=== PATIENT | female | born 1945 | race Caucasian/White ===

== ENCOUNTER → 2024-07-20 08:02 | Outpatient (REF) | payer MEDICARE, SELFPAY ==
[2024-07-20 09:36] LABS: % Eosinophils 2.6 % (0-6); % Immature Granulocytes 0.2 % (0-0.5); % Lymphocytes 31.5 % (20.5-51.1); % Monocytes 8.3 % (1.7-9.3); % Neutrophils 56.4 % (42.2-75.2); Absolute Basophils 0.1 10^3/uL (0-0.2); Absolute Eosinophils 0.2 10^3/uL (0-0.7); Absolute Lymphocytes 1.8 10^3/uL (1.2-3.4); Absolute Monocytes 0.5 10^3/uL (0.1-0.6); Absolute Neutrophils 3.3 10^3/uL (1.4-6.5); Hematocrit 39.9 % (37.0-47.0); Hemoglobin 13.3 g/dL (12.0-16.0); Mean Corp Hgb Conc. 33.3 g/dL (33.0-37.0); Mean Corpuscular Hgb 30.6 pg (27.0-31.0); Mean Corpuscular Volume 91.7 fL (81.0-99.0); Mean Platelet Volume 9.4 fL (7.4-10.4); Nucleated Red Blood Cells % 0 %; Platelet Count 278 10^3/uL (130-400); Red Blood Cell Count 4.35 10^6/uL (4.20-5.40); White Blood Cell Count 5.8 10^3/uL (4.8-10.8)
[2024-07-20 10:19] LABS: ALT (SGPT) < 10 U/L (0-35); AST (SGOT) 28 U/L (14-36); Albumin 4.4 g/dl (3.5-5.0); Alkaline Phosphatase 89 U/L (38-126); Blood Urea Nitrogen 22 mg/dl (7-17); Calcium 9.8 mg/dl (8.4-10.2); Carbon Dioxide 29 mmol/L (22-30); Chloride 101 mmol/L (98-107); Glucose 95 mg/dl (70-99); Potassium 4.1 mmol/L (3.5-5.1); Sodium 140 mmol/L (135-145); Total Bilirubin 0.5 mg/dl (0.2-1.3); Total Protein 6.7 g/dl (6.3-8.2); eGFR > 60.00
[2024-07-20 10:42] LABS: TSH 4.18 uIU/ml (0.47-4.68)
== END ==
LOC: HWLAB 08:02
PROVIDERS: ATTENDING PHYSICIAN Family Medicine
DX: E03.8 Other specified hypothyroidism (principal)
CPT/HCPCS: 36415; 80053; 84443; 85025

== ENCOUNTER → 2024-10-17 10:12 | Outpatient (REF) | payer MEDICARE, SELFPAY | LOC: HWWDC 10:12 | PROVIDERS: ATTENDING PHYSICIAN Surgery; FAMILY PHYSICIAN Family Medicine | DX: Z85.3 Personal history of malignant neoplasm of breast (principal); Z12.31 Encounter for screening mammogram for malignant neoplasm of breast | CPT/HCPCS: 77063; 77067 ==

== ENCOUNTER → 2025-03-13 11:00 | Outpatient (REF) | payer MEDICARE, SELFPAY ==
[2025-03-13 16:56] LABS: % Basophils 0.8 % (0-2); % Immature Granulocytes 0.2 % (0-0.5); % Lymphocytes 20.1 % (20.5-51.1); % Monocytes 9.1 % (1.7-9.3); % Neutrophils 69.8 % (42.2-75.2); Absolute Basophils 0.1 10^3/uL (0-0.2); Absolute Lymphocytes 1.3 10^3/uL (1.2-3.4); Absolute Monocytes 0.6 10^3/uL (0.1-0.6); Absolute Neutrophils 4.6 10^3/uL (1.4-6.5); Hematocrit 40.1 % (37.0-47.0); Hemoglobin 13.4 g/dL (12.0-16.0); Mean Corp Hgb Conc. 33.4 g/dL (33.0-37.0); Mean Corpuscular Hgb 31.8 pg (27.0-31.0); Mean Corpuscular Volume 95.2 fL (81.0-99.0); Mean Platelet Volume 9.7 fL (7.4-10.4); Nucleated Red Blood Cells % 0 %; Platelet Count 275 10^3/uL (130-400); Red Blood Cell Count 4.21 10^6/uL (4.20-5.40); Red Cell Dist. Width 12.9 % (11.5-14.5); White Blood Cell Count 6.6 10^3/uL (4.8-10.8)
[2025-03-13 17:06] LABS: ALT (SGPT) 10 U/L (0-35); AST (SGOT) 26 U/L (14-36); Alkaline Phosphatase 83 U/L (38-126); Blood Urea Nitrogen 22 mg/dl (7-17); Calcium 9.6 mg/dl (8.4-10.2); Carbon Dioxide 30 mmol/L (22-30); Chloride 102 mmol/L (98-107); Glucose 99 mg/dl (70-99); Sodium 137 mmol/L (135-145); Total Bilirubin 0.7 mg/dl (0.2-1.3); Total Protein 6.6 g/dl (6.3-8.2); eGFR > 60.00
[2025-03-13 17:35] LABS: TSH 2.53 uIU/ml (0.47-4.68)
== END ==
LOC: HWLAB 11:00
PROVIDERS: ATTENDING PHYSICIAN Family Medicine; REFERRING PHYSICIAN Surgery
DX: E78.5 Hyperlipidemia, unspecified (principal); E03.8 Other specified hypothyroidism
CPT/HCPCS: 36415; 80053; 84443; 85025